=== PATIENT | male | born 1940 | race Caucasian/White ===

== ENCOUNTER 2020-01-02 23:21 | Emergency (ER) | payer MEDICARE, OTHER ==
[~2020-01-02] VITALS: Ht 172.7 cm; Wt 87.0 kg
[~2020-01-02 23:21] MED LIST: AMLO10TA8 PO; ATOR40TA59 PO; CIPR500T94 PO; NAPR-514 PO; VALS1TAB22 PO
[2020-01-03 01:05] VITALS: BP 142/84
[2020-01-03] MEDS ORDERED: ORPHENADRINE CITRATE 60 MG/2 ML VIAL. IM ONE (05:00)
--- NOTE | 2020-01-03 05:02 | PHYS DOC ---
Past Medical History Past Medical History: Arthritis, High Cholesterol, Hypertension Past Surgical History: Other Additional Past Surgical Histo: FINGER SURG, LEFT SHOULDER. Smoking Status: Never Smoker Alcohol Use: None General Adult EDM: Chief Complaint: LOWER BACK PAIN OR INJURY HPI: HPI: Patient is a 79-year-old male presenting to the ED with acute low back pain that started at 11 AM yesterday while lifting objects from a bent over position. Patient describes as deep and located the left para spinal musculature without radiation. Patient rates the pain a 8-9 out of 10 while moving around. Pain is alleviated by rest, naproxen has provided minimal relief. Pain is aggravated by heat, movement, and standing straight. Patient denies any falls, trauma, muscle weakness, sensory changes. 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 Review of Systems: Review of Systems: Constitutional: Denies fever or chills Eyes: Denies redness or eye pain HENT: Denies nasal congestion or sore throat Respiratory: Denies cough or shortness of breath Cardiovascular: Denies chest pain or palpitations GI: Denies abdominal pain, nausea, or vomiting : Denies dysuria or hematuria Musculoskeletal: Endorses back pain and joint pain Integument: Denies rash or skin lesions Neurologic: Denies headache, focal weakness or sensory changes Complete systems were reviewed and found to be within normal limits, except as documented in this note. Allergies: Allergies: Allergies Coded Allergies Type Severity Reaction Last Updated Verified No Known Drug Allergies 07/05/14 No Physical Exam: PE: Constitutional: Well developed, well nourished, no acute distress, non-toxic appearance HENT: Normocephalic, atraumatic Eyes: PERRL, EOMI, conjunctiva normal, no discharge Neck: Mildly decreased range of motion, no tenderness, supple Lungs & Thorax: Equal chest rise and fall bilaterally, no respiratory distress Abdomen: Soft, no tenderness Skin: Warm, dry, no erythema, no rash Back: Tenderness to palpation of left lumbar paraspinal musculature, no bony tenderness down the entire cervical, thoracic, lumbar spine, no SI joint tenderness to palpation, negative straight leg raise test, positive facet loading test on left Extremities: No tenderness, ROM intact, no edema Neurologic: Alert and oriented X 3, normal motor function, normal sensory function, no focal deficits noted Psychologic: Affect normal, judgment normal Current Patient Data: Vital Signs: Vital Signs Date Time Temp Pulse Resp B/P (MAP) Pulse Ox O2 Delivery O2 Flow Rate FiO2 01/03/20 01:05 98.1 102 16 142/84 (103) 97 Room Air 98.1 Course & Med Decision Making: Course & Med Decision Making Pertinent Labs and Imaging studies reviewed. (See chart for details) Patient is a 79-year-old male presenting to the ED with acute low back pains that started at 11 AM yesterday. This pain was sustained while bending over with no history of trauma. 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 Patient rates his pain at 8 out of 10. Patient is requesting a muscle relaxer. Only pain medication he is currently taking is 500 mg naproxen daily which she takes for osteoarthritis of the knees and hips. Patient stable for discharge with outpatient follow-up with PCP. Discussed findings and plan with patient, who acknowledges understanding and agreement. Ann Marie Disclaimer: Ann Marie Disclaimer: This electronic medical record was generated, in whole or in part, using a voice recognition dictation system. Departure Departure Impression: Primary Impression: Lumbar strain Qualified Codes: S39.012A - Strain of muscle, fascia and tendon of lower back, initial encounter Disposition: HOME, SELF-CARE Condition: STABLE Referrals: ZAIRA STUBBS (PCP) JARVIS LUNA MD Patient Instructions: Back Pain, Adult, Iejj-[id number] Scripts Tramadol Hcl (TRAMADOL HCL) 50 Mg Tablet 50 MG PO Q6HRS PRN for PAIN, #14 TAB Take each tablet with one (1) regular strength Tylenol 325mg Prov: LILY WRIGHT DO 01/03/20 Orphenadrine Citrate (ORPHENADRINE CITRATE) 100 Mg Tablet.er 100 MG PO TID PRN PRN for MUSCLE PAIN, #14 TAB Prov: LILY WRIGHT DO 01/03/20 Justicifation of Admission Dx: Justifications for Admission: Justification of Admission Dx: N/A LILY WRIGHT DO Jan 03, 2020 05:02
[2020-01-03] MEDS ORDERED: TRAM50TA PO (05:07)
[2020-01-03] MEDS ORDERED: ORPH100T PO (05:07)
[2020-01-03] MEDS ORDERED: ACETAMINOPHEN 325 MG TABLET. PO ONE (05:30)
[2020-01-03] MEDS ORDERED: traMADol 50 MG TABLET PO ONE (05:30)
--- NOTE | 2020-01-03 05:32 | PHYS DOC ---
Past Medical History Past Medical History: Arthritis, High Cholesterol, Hypertension Past Surgical History: Other Additional Past Surgical Histo: FINGER SURG, LEFT SHOULDER. Smoking Status: Never Smoker Alcohol Use: None General Adult EDM: Chief Complaint: LOWER BACK PAIN OR INJURY HPI: HPI: Patient is a 79 year old [f__sex] who presents with [] Review of Systems: Review of Systems: Constitutional: Denies fever or chills. [] Eyes: Denies change in visual acuity. [] HENT: Denies nasal congestion or sore throat. [] Respiratory: Denies cough or shortness of breath. [] Cardiovascular: Denies chest pain or edema. [] GI: Denies abdominal pain, nausea, vomiting, bloody stools or diarrhea. [] : Denies dysuria. [] Musculoskeletal: Denies back pain or joint pain. [] Integument: Denies rash. [] Neurologic: Denies headache, focal weakness or sensory changes. [] Endocrine: Denies polyuria or polydipsia. [] Lymphatic: Denies swollen glands. [] Psychiatric: Denies depression or anxiety. [] Heart Score: Risk Factors: Risk Factors: DM, Current or recent (<one month) smoker, HTN, HLP, family his tory of CAD, obesity. Risk Scores: Score 0 - 3: 2.5% MACE over next 6 weeks - Discharge Home Score 4 - 6: 20.3% MACE over next 6 weeks - Admit for Clinical Observation Score 7 - 10: 72.7% MACE over next 6 weeks - Early Invasive Strategies Allergies: Allergies: Allergies Coded Allergies Type Severity Reaction Last Updated Verified No Known Drug Allergies 07/05/14 No Physical Exam: PE: Constitutional: Well developed, well nourished, no acute distress, non-toxic appearance. [] HENT: Normocephalic, atraumatic, bilateral external ears normal, oropharynx moist, no oral exudates, nose normal. [] Eyes: PERRLA, EOMI, conjunctiva normal, no discharge. [] Neck: Normal range of motion, no tenderness, supple, no stridor. [] Cardiovascular:Heart rate regular rhythm, no murmur [] Lungs & Thorax: Bilateral breath sounds clear to auscultation [] Abdomen: Bowel sounds normal, soft, no tenderness, no masses, no pulsatile masses. [] Skin: Warm, dry, no erythema, no rash. [] Back: No tenderness, no CVA tenderness. [] Extremities: No tenderness, no cyanosis, no clubbing, ROM intact, no edema. [] Neurologic: Alert and oriented X 3, normal motor function, normal sensory function, no focal deficits noted. [] Psychologic: Affect normal, judgement normal, mood normal. [] Current Patient Data: Vital Signs: Vital Signs Date Time Temp Pulse Resp B/P (MAP) Pulse Ox O2 Delivery O2 Flow Rate FiO2 01/03/20 01:05 98.1 102 16 142/84 (103) 97 Room Air 98.1 EKG: EKG: [] Radiology/Procedures: Radiology/Procedures: [] Course & Med Decision Making: Course & Med Decision Making Pertinent Labs and Imaging studies reviewed. (See chart for details) [] Dragon Disclaimer: Dragon Disclaimer: This electronic medical record was generated, in whole or in part, using a voice recognition dictation system. Departure Departure Referrals: ZAIRA STUBBS (PCP) LILY WRIGHT DO Jan 03, 2020 05:32
== END 2020-01-03 06:18 | disposition home or self-care (01) ==
LOC: ER 23:21
DX: S39.012A Strain of muscle, fascia and tendon of lower back, initial encounter (principal); E78.00 Pure hypercholesterolemia, unspecified; I10 Essential (primary) hypertension; X50.9XXA Other and unspecified overexertion or strenuous movements or postures, initial encounter; Y93.89 Activity, other specified; Y92.89 Other specified places as the place of occurrence of the external cause; Y99.8 Other external cause status
CPT/HCPCS: 96372; 99283; J2360

== ENCOUNTER → 2020-02-19 | Outpatient (CLI) | payer MEDICARE, OTHER ==
[~2020-02-19] MED LIST changes: +AMLO-187 PO; -AMLO10TA8 PO; +CART1TAB5 PO; +CHOL40003 PO; +MAGN296S68 PO; +MELO15TA23 PO; +MULT-766 PO; +ORPH100T PO; +OXYC5CAP PO; +SENN-121 PO; +TRAM50TA PO; -VALS1TAB22 PO; +VALS1TAB23 PO; +WARF-31 PO; +WARF4TAB64 PO
[2020-02-19 09:58] LABS: BASO % 1 % (0-3); EOS # 0.1 x10^3/uL (0.0-0.7); EOS % 2 % (0-3); HEMATOCRIT 43.1 % (39.0-53.0); HEMOGLOBIN 14.8 g/dL (13.0-17.5); LYMPH # 2.2 x10^3/uL (1.0-4.8); LYMPH % 37 % (24-48); MEAN CORPUSCULAR HEMOGLOBIN 33 pg (25-35); MEAN CORPUSCULAR HGB CONC 34 g/dL (31-37); MEAN CORPUSCULAR VOLUME 95 fL (79-100); MONO # 0.6 x10^3/uL (0.0-1.1); MONO % 10 % (0-9); NEUT # 2.9 x10^3/uL (1.8-7.7); NEUT % 49 % (31-73); PLATELET COUNT 142 x10^3/uL (140-400); RED BLOOD COUNT 4.53 x10^6/uL (4.30-5.70); RED CELL DISTRIBUTION WIDTH 12.2 % (11.5-14.5); WHITE BLOOD COUNT 5.9 x10^3/uL (4.0-11.0)
[2020-02-19 10:13] LABS: ALBUMIN 3.6 g/dL (3.4-5.0); C-REACTIVE PROTEIN 11.1 mg/L (0-3.3); CALCIUM 9.1 mg/dL (8.5-10.1); GFR 72.1; POTASSIUM 3.5 mmol/L (3.5-5.1)
[2020-02-19 10:30] LABS: PROTHROMBIN TIME PATIENT 13.8 SEC (11.7-14.0)
--- NOTE | 2020-02-19 13:25 | EKG ---
[facility] [address] [place] [address] Test Date: 2020-02-19 Test Time: 13:14:47 Pat Name: ANGEL SANDOVAL Department: Room: Gender: Bottom Worker: RA Lindo : 1940 Requested By: KING SYLVESTER Order Number: [id number] Reading MD: Jamshid Neri MD Measurements Intervals [place] Rate: 67 P: 39 CT: 162 QRS: 29 QRSD: 86 T: 26 QT: 388 QTc: 413 Interpretive Statements SINUS RHYTHM Electronically Signed On 02-21-2020 8:27:56 CDT by Jamshid Neri MD
--- NOTE | 2020-02-19 14:01 | RAD ---
Chest radiograph 02/19/2020 9:16 AM INDICATION: Preoperative evaluation COMPARISON: None available TECHNIQUE: Frontal and lateral views of the chest are provided. FINDINGS: The cardiomediastinal silhouette is within normal limits. There are no pleural effusions. There is no pulmonary vascular congestion. There is no pneumothorax. The lungs are clear. No significant osseous abnormality is identified. IMPRESSION: No acute cardiopulmonary process. Electronically signed by: Viviane Bishop MD (02/19/2020 1:58 PM) [id number]
[2020-02-20 01:08] LABS: HEMOGLOBIN A1C 5.4 % (4.8-5.6)
== END ==
LOC: SURGPAT 13:07
PROVIDERS: ATTEND Orthopaedic Surgery
DX: Z01.818 Encounter for other preprocedural examination (principal); M16.11 Unilateral primary osteoarthritis, right hip; I10 Essential (primary) hypertension; Z96.651 Presence of right artificial knee joint; Z87.891 Personal history of nicotine dependence
CPT/HCPCS: 36415; 71046; 80048; 82040; 82306; 83036; 85025; 85610; 85730; 86140; 87641; 93005

== ENCOUNTER → 2020-03-08 | Outpatient (CLI) | payer MEDICARE, OTHER ==
[~2020-03-08] MED LIST changes: -MAGN296S68 PO; -SENN-121 PO; +VALS1TAB22 PO; -VALS1TAB23 PO
== END ==
LOC: LAB 14:00
PROVIDERS: ATTEND Orthopaedic Surgery
DX: Z01.812 Encounter for preprocedural laboratory examination (principal); Z20.828 Contact with and (suspected) exposure to other viral communicable diseases
CPT/HCPCS: U0003

== ENCOUNTER → 2020-05-27 | Outpatient (CLI) | payer MEDICARE, OTHER ==
[2020-03-14 08:06] VITALS: BP 116/65
[~2020-05-27] MED LIST changes: +MAGN296S68 PO; +SENN-121 PO; -VALS1TAB22 PO; +VALS1TAB23 PO
[2020-05-27 10:04] LABS: BASO # 0.1 x10^3/uL (0.0-0.2); BASO % 1 % (0-3); EOS # 0.2 x10^3/uL (0.0-0.7); EOS % 3 % (0-3); HEMATOCRIT 43.1 % (39.0-53.0); HEMOGLOBIN 14.2 g/dL (13.0-17.5); LYMPH # 2.2 x10^3/uL (1.0-4.8); LYMPH % 40 % (24-48); MEAN CORPUSCULAR HEMOGLOBIN 31 pg (25-35); MEAN CORPUSCULAR HGB CONC 33 g/dL (31-37); MEAN CORPUSCULAR VOLUME 94 fL (79-100); MONO # 0.5 x10^3/uL (0.0-1.1); MONO % 10 % (0-9); NEUT # 2.6 x10^3/uL (1.8-7.7); NEUT % 46 % (31-73); PLATELET COUNT 151 x10^3/uL (140-400); RED BLOOD COUNT 4.58 x10^6/uL (4.30-5.70); RED CELL DISTRIBUTION WIDTH 13.2 % (11.5-14.5); WHITE BLOOD COUNT 5.5 x10^3/uL (4.0-11.0)
[2020-05-27 10:23] LABS: ALBUMIN 3.3 g/dL (3.4-5.0); CALCIUM 8.9 mg/dL (8.5-10.1); CREATININE 0.9 mg/dL (0.7-1.3); GFR 81.4; POTASSIUM 3.9 mmol/L (3.5-5.1)
[2020-05-27 10:33] LABS: PROTHROMBIN TIME PATIENT 13.8 SEC (11.7-14.0)
[2020-05-27 23:07] LABS: HEMOGLOBIN A1C 5.3 % (4.8-5.6)
--- NOTE | 2020-05-30 12:23 | NUR ---
SCHEDULED FOR D&C 05/21/20 AT 11 AM. PT WAS COVID POSITIVE 03/29/20 WITH MILD SYMPTOMS. ACCORDING TO "PHASE III COVID-19 ELECTIVE PROCEDURE REENTRY POLICY" DOES NOT NEED TO BE RETESTED SINCE >4 WEEKS FROM PREVIOUS COVID+ TEST. Addendum: 05/30/20 at 1227 by CHRISTOPH BROOKE RN NOTE ENTERED ON WRONG PATIENT-DISREGARD NOTE
== END ==
LOC: SURGPAT 12:41
PROVIDERS: ATTEND Orthopaedic Surgery
DX: Z01.812 Encounter for preprocedural laboratory examination (principal); M17.0 Bilateral primary osteoarthritis of knee
CPT/HCPCS: 36415; 80048; 82040; 82306; 83036; 85025; 85610; 85730; 86140; 87641

== ENCOUNTER → 2020-06-07 | Outpatient (CLI) | payer MEDICARE ==
[2020-03-14 08:06] VITALS: BP 116/65
[~2020-06-07] MED LIST changes: -MAGN296S68 PO; -SENN-121 PO; +VALS1TAB22 PO; -VALS1TAB23 PO
== END ==
LOC: LAB 11:01
PROVIDERS: ATTEND Orthopaedic Surgery
DX: Z01.812 Encounter for preprocedural laboratory examination (principal); M17.0 Bilateral primary osteoarthritis of knee; Z20.822 Contact with and (suspected) exposure to COVID-19
CPT/HCPCS: U0003

== ENCOUNTER 2020-06-20 22:07 | Emergency (ER) | payer MEDICARE ==
[~2020-06-20] VITALS: Ht 170.2 cm; Wt 86.3 kg
--- NOTE | 2020-06-21 00:17 | PHYS DOC ---
Past Medical History Past Medical History: Arthritis, High Cholesterol, Hypertension Past Surgical History: Appendectomy, Hip Replacement, Knee Replacement, Other Additional Past Surgical Histo: FINGER SURG, LEFT SHOULDER. Smoking Status: Former Smoker Alcohol Use: None General Adult EDM: Chief Complaint: MULTIPLE COMPLAINTS HPI: HPI: Patient is a 79 year old male who presents with constipation and right lower extremity swelling and erythema. The patient is a week postop from right total knee arthroplasty by Dr. Escalante. The patient developed some swelling and erythema in the postop leg and saw Dr. Escalante on Wednesday who placed the patient on cephalexin. The patient notes that the leg is still swollen but the redness has improved. His main complaint at this time is worsening constipation of 24 hours duration. He has had some bright red blood per rectum over the last day but no bowel movement. The blood is characterized as spotting the patient thinks is likely due to straining. He is still on opioid pain medication and has had constipation from these medications in the past. He denies nausea or vomiting, or fever or chills. He denies his abdomen being acutely painful, just a feeling of constipation. Review of Systems: Review of Systems: Constitutional: Denies fever or chills Eyes: Denies redness or eye pain HENT: Denies nasal congestion or sore throat Respiratory: Denies cough or shortness of breath Cardiovascular: Denies chest pain or palpitations GI: Notes some abdominal pain, but denies nausea, or vomiting : Denies dysuria or hematuria Musculoskeletal: Denies back pain or joint pain. Notes right lower extremity swelling and erythema. Integument: Denies rash or skin lesions Neurologic: Denies headache, focal weakness or sensory changes Complete systems were reviewed and found to be within normal limits, except as documented in this note. Allergies: Allergies: Allergies Coded Allergies Type Severity Reaction Last Updated Verified No Known Drug Allergies 07/05/14 No Physical Exam: PE: Constitutional: Well developed, well nourished, no acute distress, non-toxic appearance HENT: Normocephalic, atraumatic Eyes: PERRL, EOMI, conjunctiva normal, no discharge Neck: Normal range of motion, no tenderness, supple Lungs & Thorax: No respiratory distress, equal chest rise and fall Abdomen: Soft, no tenderness Skin: Warm, dry, right lower extremity erythema, no rash Back: No tenderness, no CVA tenderness Extremities: No tenderness, ROM intact, right lower extremity edema Neurologic: Alert and oriented X 3, normal motor function, normal sensory function, no focal deficits noted Psychologic: Affect normal, judgment normal Current Patient Data: Vital Signs: Vital Signs Date Time Temp Pulse Resp B/P (MAP) Pulse Ox O2 Delivery O2 Flow Rate FiO2 06/20/20 22:20 99.4 79 14 139/64 (89) 98 Room Air 99.4 EKG: EKG: [] Radiology/Procedures: Radiology/Procedures: PROCEDURE: VENOUS LOWER EXTREMITY RIGHT Right lower extremity venous duplex study 06/21/2020 Clinical History: Right leg pain and swelling. Right knee replacement last week. Technique: Using a combination of real time ultrasound imaging and color-flow and pulse Doppler imaging techniques along with graded compression and augmentation, duplex evaluation of the deep venous system of the right lower extremity was performed. Multiple images were obtained. Findings: There is no sonographic evidence of deep venous thrombosis involving the visualized deep venous structures of the right lower extremity. Impression: Negative study. Electronically signed by: Aurelio Fonseca MD (06/21/2020 12:38 AM) [id number] Course & Med Decision Making: Course & Med Decision Making Pertinent Labs and Imaging studies reviewed. (See chart for details) Patient is a 79-year-old male presenting with constipation and right lower extremity edema and erythema. Patient is on opioid pain medications postop for right total hip arthroplasty. He had not had a bowel movement in over a day and was having some light bleeding from the rectum likely due to straining. No external hemorrhoids were appreciated on physical exam, and no internal hemorrhoids were palpated on digital rectal exam. Manual disimpaction was performed, upon which several hard formed stool were appreciated. The patient will be sent home with a bowel regimen. The leg erythema has improved since the patient was started on cephalexin on Wednesday per his orthopedic surgeon, but the swelling has persisted so a ultrasound study was ordered and was negative for DVT. Patient was instructed to follow-up with Ortho if the swelling/redness does not improve or if the patient develops signs of infection. Patient stable for discharge with outpatient follow-up with PCP. Discussed findings and plan with patient, who acknowledges understanding and agreement. Ann Marie Disclaimer: Ann Marie Disclaimer: This electronic medical record was generated, in whole or in part, using a voice recognition dictation system. Departure Departure Impression: Primary Impression: Postoperative edema Additional Impression: Constipation Qualified Codes: K59.00 - Constipation, unspecified Disposition: 01 DC HOME SELF CARE/HOMELESS Condition: STABLE Referrals: ZAIRA STUBBS (PCP) KING ESCALANTE MD Patient Instructions: Constipation, Adult, [id number], Total Knee Replacement, Care After, Cpur-la-Tpns Scripts Magnesium Citrate (MAGNESIUM CITRATE) 296 Ml Solution 296 ML PO ONCE PRN for CONSTIPATION, #296 ML Prov: LILY WRIGHT DO 06/21/20 Sennosides/Docusate Sodium (Colace 2-in-1 Tablet) 1 Each Tablet 1 TAB PO BID, #30 TAB 0 Refills Prov: LILY WRIGHT DO 06/21/20 LILY WRIGHT DO Jun 21, 2020 00:17
--- NOTE | 2020-06-21 00:40 | RAD ---
Right lower extremity venous duplex study 06/21/2020 Clinical History: Right leg pain and swelling. Right knee replacement last week. Technique: Using a combination of real time ultrasound imaging and color-flow and pulse Doppler imagi ng techniques along with graded compression and augmentation, duplex evaluation of the deep venous sy stem of the right lower extremity was performed. Multiple images were obtained. Findings: There is no sonographic evidence of deep venous thrombosis involving the visualized deep ve nous structures of the right lower extremity. Impression: Negative study. Electronically signed by: Aurelio Fonseca MD (06/21/2020 12:38 AM) [id number]
[2020-06-21] MEDS ORDERED: SENN-121 PO (00:48)
[2020-06-21] MEDS ORDERED: MAGN296S68 PO (00:48)
[2020-06-21 01:00] VITALS: BP 134/62
== END 2020-06-21 01:02 | disposition home or self-care (01) ==
LOC: ER 22:07
DX: T81.89XA Other complications of procedures, not elsewhere classified, initial encounter (principal); K59.00 Constipation, unspecified; R60.0 Localized edema; E78.00 Pure hypercholesterolemia, unspecified; I10 Essential (primary) hypertension; Z87.891 Personal history of nicotine dependence; Y83.8 Other surgical procedures as the cause of abnormal reaction of the patient, or of later complication, without mention of misadventure at the time of the procedure
CPT/HCPCS: 93971; 99285-25